=== PATIENT | male | born 1950 | race Two or more races ===

== ENCOUNTER 2018-10-17 15:32 | Emergency (ER) | payer SELFPAY ==
[~2018-10-17] VITALS: Ht 172.7 cm; Wt 70.0 kg
[2018-10-17 18:11] VITALS: BP 115/51
== END 2018-10-17 18:10 ==
LOC: ER 15:32
DX: F31.9 Bipolar disorder, unspecified (principal); Z88.0 Allergy status to penicillin
CPT/HCPCS: 99283

== ENCOUNTER 2019-02-20 23:51 | Emergency (ER) | payer MEDICARE ==
[~2019-02-20] VITALS: Ht 167.6 cm; Wt 59.0 kg
[2019-02-20 23:52] VITALS: BP 116/60
[2019-02-21] MEDS ORDERED: DIPHENHYDRAMINE 50MG/ML VIAL IM ONE (00:45)
== END 2019-02-21 01:00 | disposition left against medical advice (07) ==
LOC: ER 23:51
DX: L29.9 Pruritus, unspecified (principal); F41.9 Anxiety disorder, unspecified; F32.9 Major depressive disorder, single episode, unspecified; E11.9 Type 2 diabetes mellitus without complications; I25.2 Old myocardial infarction; F17.200 Nicotine dependence, unspecified, uncomplicated; Z88.0 Allergy status to penicillin
CPT/HCPCS: 99283